=== PATIENT | female | born 1990 | race Caucasian/White ===

== ENCOUNTER 2018-04-22 05:48 | Inpatient (IN) ==
[2018-04-22] MEDS ORDERED: *HR* Nalbuphine 10 MG/ML AMPUL IVP PRN (05:58)
[2018-04-22] MEDS ORDERED: Lidocaine 1% 20 ML MDV INFILT PRN (05:58)
[2018-04-22] MEDS ORDERED: Famotidine 20 MG/2 ML VIAL IVP PRN (05:58)
[2018-04-22] MEDS ORDERED: Ondansetron 4 MG/2 ML VIAL IVP PRN (05:58)
[2018-04-22] MEDS ORDERED: Naloxone 0.4 MG/ML INJ IVP PRN (05:58)
[2018-04-22] MEDS ORDERED: Metoclopramide 10 MG/2 ML VIAL IVP PRN (05:58)
[2018-04-22] MEDS ORDERED: miSOPROStol 100 MCG TABLET PO PRN (05:58)
[2018-04-22] MEDS ORDERED: D5% in 0.45% NACL 1,000 ML IVC SCH (06:15)
[2018-04-22 06:36] LABS: Basophils % 0.3 %; Eosinophils # 0.1 K/mcL (0.0-0.6); Eosinophils % 1.2 %; Hematocrit 35.3 % (35.3-44.9); Immature Granulocytes % 0.7 % (0-4); Lymphocytes # 1.7 K/mcL (0.6-4.6); Lymphocytes % 18.2 %; Mean Corpuscular Hemoglobin 31.2 pg (28.0-33.3); Mean Corpuscular Volume 91.7 fL (83.0-100.0); Mean Platelet Volume 10.8 fL (9.4-12.4); Monocytes # 0.7 K/mcL (0.0-1.3); Monocytes % 7.3 %; Neutrophils # 6.8 K/mcL (1.6-8.9); Platelet Count 203 K/mcL (140-400); Red Blood Count 3.85 M/mcL (3.82-4.97); Red Cell Distribution Width 14.4 % (11.5-14.5); Segmented Neutrophils % 72.3 %
[2018-04-22 06:55] LABS: Amphetamine Screen,Urine Negative ng/mL (Cutoff=1000); Barbiturate Screen,Urine Negative ng/mL (Cutoff=200); Benzodiazepines Screen,Urine Negative ng/mL (Cutoff=200); Cannabinoid Screen,Urine Negative ng/mL (Cutoff = 50); Cocaine Screen,Urine Negative ng/mL (Cutoff= 300); Opiate Screen,Urine Negative ng/mL (Cutoff=300); Phencyclidine Screen,Urine Negative ng/mL (Cutoff=25)
[2018-04-22] MEDS ORDERED: Ringers Solution, Lactated 1,000 ML ONE ×3 (07:19→13:44)
[2018-04-22] MEDS ORDERED: EPHEDrine 50 MG/ML VIAL IVP PRN (07:37)
--- NOTE | 2018-04-22 07:37 | Anesthesia Evaluation PreOp ---
Date of Encounter: 04/22/18 Time of Encounter: 07:33 - Past History Planned Operation: vaginal del, induction 39wk Cardiac History: Denies any Significant Hx Pulmonary History: Denies Any Significant HX PAPER PRODUCTION ENGINEER History: Denies Any Significant HX Other Medical History: Denies Any Significant HX Anesthesia History: No Prior Anesthetic Complications, Past Anesthesia Alcohol Use: none Drug use: none Medications and Allergies 3 Allergy/AdvReac Type Severity Reaction Status Date / Time latex Allergy Hives Verified 04/22/18 07:16 Anesthesia Results - Labs 04/22/18 06:00 Anesthesia Exam - HEENT Pupil (Motor): Pupils equal Mallampati: II Teeth: Normal Oral Opening: Greater than 3 - PAPER PRODUCTION ENGINEER LOC: Oriented PAPER PRODUCTION ENGINEER Motor: Normal RUE, Normal LUE, Normal RLE, Normal LLE, Normal Face PAPER PRODUCTION ENGINEER Sensory: Normal: RUE, LUE, RLE, LLE, Face - Cardiac Rhythm: Regular Murmur: None - Pulmonary Breath Sounds: bilateral Clear Respiratory Effort: Symmetrical Anesthesia Assess/Plan ASA Score: 2 Modified [place] Scale for Level of Consciousness: Cooperative, oriented, and tranquil Anesthetic Plan: General, Regional Monitoring Plan: Standard Monitors
[2018-04-22] MEDS ORDERED: Lidocaine -MPF 2% 5 ML VIAL ONE (07:40)
[2018-04-22] MEDS ORDERED: Epidural Premix (fent/bupiv) 110 ML EP SCH (07:45)
[2018-04-22] MEDS ORDERED: Epidural Premix (fent/bupiv) 110 ML EP ONE (07:55)
--- NOTE | 2018-04-22 08:04 | OB/GYN History & Physical ---
Date of Encounter: 04/22/18 Time of Encounter: 08:01 Assessment and Plan (1) 39 weeks gestation of Current visit: Yes Status: Acute (2) macrosomia during in third trimester Current visit: Yes Status: Acute Induction of labor at 39 weeks. Patient has a proven pelvis with a 9 pound delivery without a shoulder dystocia Qualifiers: Fetus number: single or unspecified fetus Qualified Code(s): O36.63X0 - Maternal care for excessive growth, third trimester, not applicable or unspecified (3) History of maternal Chlamydia infection, currently in third trimester Current visit: Yes Status: Chronic Patient will receive a cord stat at delivery for this history. She declined GC and chlamydia cultures with her care History of Present Illness Chief complaint: IOL HPI: Ms. Thrasher is a 28 year old female with an EDC of 04/29/18 by LMP and confirmed by 8 week ultrasound who is now 39 weeks. She had an ultrasound one week ago which gave an estimated weight of 8 lbs. 12 oz. and an FREYA of 22. Her maximum vertical pocket was 7.8 cm. This has been complicated by macrosomia, she had a first trimester 5 cm ovarian cyst which spontaneously resolved. She had first trimester NT testing which was within range. Her glucose screening has been normal. She denies any vaginal bleeding or loss of fluid and reports an active fetus. She has a benign pituitary tumor and has hyperprolactinemia. No recent prolactin level has been noted in [facility]. She declined GC and chlamydia cultures but will be a cord stat due to history of chlamydia. She has had 2 vaginal deliveries with the largest being 9 pounds and reports no complications with that delivery. Her blood type is a positive, she is GBS negative, rubella immune, varicella immune, syphilis screen negative, hepatitis B surface antigen nonreactive and HIV nonreactive. She states that she has a latex allergy but there is no documentation of testing for this in [facility] Past Med Surg Social Fam HX - Past Medical History Attestation: Yes The following information was validated with the patient. Source: patient, old records reviewed Medical history: other (Hyperprolactinemia benign pituitary tumor) Additional medical history: PITUTARY GLAND TUMOR- HYPERPROLACTINEMIA Psychiatric history: depression - Past Surgical History Surgical History: other (Tonsillectomy) - Social History Smoking Status: Never smoker Smokeless Tobacco Status: No Alcohol use: none Drug use: none - Family History Mother Living Status: Still Living Hx Family Cardiac Disorders: No Hx Family Respiratory Disorders: No Hx Family Cancer: No Hx Family GI Disorders: No Hx Family Genitourinary Disorders: No Hx Family Endocrine Disorder: No Hx Family Musculoskeletal Disorders: No Hx Family Neuromuscular Disorders: No Hx Family Neurologic Disorders: No Hx Family HEENT Disorders: No Hx Family Autoimmune Disorders: No Hx Family Reproductive Disorders: No Hx Family Psychosocial Disorders: No Hx Family Medical Disorders: No Obstetrical History - Pregnancies : 4 Term: 2 Ab's: 1 Livin Medications and Allergies 3 Allergy/AdvReac Type Severity Reaction Status Date / Time latex Allergy Hives Verified 04/22/18 07:16 Review of System OB All systems PM: reviewed and no additional remarkable complaints except as stated - Constitutional Constitutional ROS IM: as per HPI, fatigue, weight gain - Menstruation Menstruation: as per HPI Exam - Vital Signs Vital signs: Initial Vital Signs Pulse Resp BP 90 16 116/66 04/22/18 06:08 04/22/18 06:08 04/22/18 06:08 - Constitutional Constitutional: well developed, well nourished, no acute distress, average body habitus - HEENT HEENT: Normocephaly, Mucus Membranes Moist - Neck Neck exam: normal inspection, supple - Lungs Respiratory exam: CTAB - Cardiovascular Cardiovascular exam: RRR - Breasts Breast: bilateral: normal (gravid) - Abdomen Abdomen: Present: bowel sounds normal, gravid, non tender - Extremities Extremities exam: pedal edema, warm Deep Tendon Reflex Grade: 2+ Normal - Vulva Vulva: bilateral: normal - Vagina Vagina: Present: normal moisture - Cervix Dilation: 3 Effacement: 70 Station: -1 - Anus/Rectum Anus/Rectum: Present: normal perianal skin Results Result Diagrams: 04/22/18 06:00 All other labs normal. - VTE Reasons for not Prescribing Prophylaxis: Treatment not Indicated - Low risk for VTE
--- NOTE | 2018-04-22 08:34 | Anesthesia Procedures ---
Date of Encounter: 04/22/18 Time of Encounter: 08:09 Procedures: Anesthesia - Epidural/Spinal Patient ID/Chart reviewed: Yes Patient examined: Yes OB Eval: Gestational age: 39 OB Eval: : 4 OB Eval: Hx Para: 2 OB Eval: Contractions: Non-stressed pattern Consent Obtained: Yes Supplemental Oxygen: None/Room Air Site Prep: Aseptic Technique, Sterile prep and drape, 0.5% Chlorhexidine/Alcohol Patient position: upright Local Anesthetic: other (2%) Amount of Local Anesthetic used: 2 Touhy Needle Gauge: 18 Touhy Needle Depth (cm): 7 Catheter Depth at Skin (cm): 11 Test Dose (1.5% Lido + Epi): Volume given (mls): 3 Test Dose Result: Negative Loading Dose: Other: 10ml from solution Loading Dose Administered: Thru Catheter Infusion Med: 0.125% Bupivacaine w/ 2 mcg/ml Fentanyl Infusion Rate (mls/hr): [address]: Tegaderm, Tape Interspace Used: L3-L4 Loss of Resistance (MILDRED): Yes (saline) Blood: No CSF: No Paresthesia: No Procedure: vss though out, FHR stable per RN's
--- NOTE | 2018-04-22 12:22 | OB Labor Progress Note ---
Date of Encounter: 04/22/18 Time of Encounter: 12:19 Labor Progress Note - Subjective Subjective: The patient reports being comfortable with her epidural - Vital Signs Vital Signs: Afebrile, vital signs stable - Cervix Cervix: 5/80/-1, vertex with tight bulging bag of water - Heart Tones Heart Tones: 150s baseline, CAT 1 - [place]: Contractions every 2-3 minutes, Cytotec 50 mcg's x1 dose @0650 - Interventions Interventions: 39 week IUP for induction of labor with a history of a macrosomic and suspected macrosomia with this . - Plan Plan: Amniotomy with IUPC placed without difficulty, moderate amount of fluid seen that was clear. Continue induction, determine if augmentation with Pitocin needed. Anticipate vaginal delivery
--- NOTE | 2018-04-22 12:38 | Anesthesia Procedures ---
Date of Encounter: 04/22/18 Time of Encounter: 12:04 Procedures: Anesthesia - Nerve Block Procedure Date: 04/22/18 Time: 12:04 Surgical Procedure: right shoulder arthroscopy Checklist: Correct Patient Identifier, Correct procedure, History checked Correct side: Right Blood Thinner: No Monitor Applied: BP, Pulse Oximetry Supplemental Oxygen via Nasal Cannula (L/min): 2 Sedation: Versed (mg): 2 Sedation: Fentanyl (mcg): 100 Indication: Post Op Analgesia Block Type: Supraclavicular Catheter placed: No Sterile Technique: Yes Ultrasound used: Yes Anatomy identified: Yes Visual spread of Local: Yes Neuro Stimulation: No Blood on Needle Aspiration: No Smooth Injection of Local: Yes Pain with Injection of Local: No Prep: Chlorhexadine Needle: 22 x 50 mm Stimuplex Local: 0.25% Bupivicaine w/Clonidine 20 mcg/cc (10ml for SCP, 10ml for T2)
[2018-04-22] MEDS ORDERED: Oxytocin 20 units/ LR 1000 mL 20 UNIT/1,000 ML BAG IVC SCH ×2 (13:45→20:34)
[2018-04-22] MEDS ORDERED: *HR* ROPIVACAINE 1% PF 100 MG/10 ML VIAL ONE (16:34)
[2018-04-22] MEDS ORDERED: Acetaminophen 325 MG TABLET PO ONE (17:06)
[2018-04-22] MEDS ORDERED: Oxytocin 20 units/ LR 1000 mL 40 UNIT/2,000 ML BAG IVC ONE (18:25)
--- NOTE | 2018-04-22 18:57 | OB/GYN Procedure Note ---
Delivery - Delivery Date: 04/22/18 Provider: Alina Lopez Intrapartum events: none Delivery induction: misoprostol Delivery augmentation: rupture of membranes, pitocin Delivery monitor: external FHT, external uterine, internal uterine Anesthesia: epidural Quantitated Blood Loss: 200 - (s) Infant A Infant Delivery Date: 04/22/18 Delivery Time: 18:30 Presentation: vertex Position: JOSE Route of delivery: Gender: Male Viability: Viable Pounds: 9 Ounces: 4 Weight Gram: 4.18 kg at 1 minute: 8 at 5 mins: 9 Shoulder Dystocia: not encountered Placenta: spontaneous, uterine exploration Cord: 3 umbilical vessels - Repair Episiotomy: none Laceration Description: Perineal - 1st Degree - Complications Delivery complications: none Delivery comments: The patient was complete and pushing with epidural anesthesia with a spontaneous vaginal delivery in the JOSE position of a vigorous male infant weighing 9 lbs. 3 oz. with Apgars of 8 at 1 minute and 9 at 5 minutes. Infant was placed on the maternal abdomen. The cord was clamped and cut after pulsations ceased. Cord blood obtained. The placenta was delivered spontaneous and intact. First-degree perineal laceration was repaired with 3-0 Vicryl in usual fashion. Estimated blood loss 200 mL, complications none. Both mother name for recovering in the LDR in stable condition - Disposition Mom disposition: stable in LDR [place] disposition: stable in LDR
[2018-04-22] MEDS ORDERED: *HR* HYDROcodone/Acet 5/325 mg TABLET PO PRN (20:34)
[2018-04-22] MEDS ORDERED: Sennosides 8.6 MG TABLET PO PRN (20:34)
[2018-04-22] MEDS ORDERED: Acetaminophen 325 MG TABLET PO PRN (20:34)
[2018-04-22] MEDS: Ibuprofen 600 MG TABLET PO SCH (21:32)
[2018-04-23] MEDS: Ibuprofen 600 MG TABLET PO SCH ×3 (04:26→15:07)
[2018-04-23 04:55] LABS: Basophils % 0.2 %; Eosinophils # 0.1 K/mcL (0.0-0.6); Eosinophils % 0.6 %; Hematocrit 34.7 % (35.3-44.9); Hemoglobin 11.8 g/dL (11.5-15.4); Immature Granulocytes % 0.7 % (0-4); Lymphocytes # 1.4 K/mcL (0.6-4.6); Lymphocytes % 11.1 %; Mean Corpuscular Hemoglobin 31.6 pg (28.0-33.3); Mean Platelet Volume 10.7 fL (9.4-12.4); Monocytes # 0.9 K/mcL (0.0-1.3); Monocytes % 7.6 %; Neutrophils # 9.9 K/mcL (1.6-8.9); Platelet Count 215 K/mcL (140-400); Red Blood Count 3.73 M/mcL (3.82-4.97); Red Cell Distribution Width 14.2 % (11.5-14.5); Segmented Neutrophils % 79.8 %
[2018-04-23] MEDS ORDERED: Prenatal Vit/FA 1 EACH TABLET PO SCH (09:00)
[2018-04-23 16:24] VITALS: BP 114/73
--- NOTE | 2018-04-23 17:31 | Discharge Summary ---
Date of Encounter: 04/23/18 Time of Encounter: 17:29 - Discharge Diagnosis (1) Vaginal delivery Priority: Primary Status: Acute Comments: Meeting all PP milestones, Pain well managed on po pain medication, bleeding minimal, desires discharge - Discharge Medications Prescriptions: Docusate [Colace] 100 mg PO BID #60 capsule Ibuprofen [Motrin] 600 mg PO Q6H #60 tablet Home Medications: Acetaminophen [Tylenol] 650 mg PO Q6HR PRN tablet 04/23/18 [Rx] Docusate [Colace] 100 mg PO BID #60 capsule 04/23/18 [Rx] Ibuprofen [Motrin] 600 mg PO Q6H #60 tablet 04/23/18 [Rx] Allergies/Adverse Reactions: 3 Allergy/AdvReac Type Severity Reaction Status Date / Time latex Allergy Hives Verified 04/22/18 07:16 Data Procedures and tests throughout hospitalization: Laboratory Tests 04/22/18 04/22/18 04/23/18 06:00 06:20 04:25 WBC 9.4 12.4 H RBC 3.85 3.73 L Hgb 12.0 11.8 Hct 35.3 34.7 L MCV 91.7 93.0 MCH 31.2 31.6 MCHC 34.0 34.0 RDW 14.4 14.2 Plt Count 203 215 MPV 10.8 10.7 Immature Gran % 0.7 0.7 Seg Neutrophils % 72.3 79.8 Lymphocytes % 18.2 11.1 Monocytes % 7.3 7.6 Eosinophils % 1.2 0.6 Basophils % 0.3 0.2 Neutrophils # 6.8 9.9 H Lymphocytes # 1.7 1.4 Monocytes # 0.7 0.9 Eosinophils # 0.1 0.1 Basophils # 0.0 0.0 Urine Opiates Screen Negative Ur Barbiturates Screen Negative Ur Phencyclidine Scrn Negative Ur Amphetamines Screen Negative U Benzodiazepines Scrn Negative Urine Cocaine Screen Negative U Marijuana (THC) Screen Negative Labs on day of discharge: Labs from last 24 hours 04/23/18 04:25 WBC 12.4 H RBC 3.73 L Hgb 11.8 Hct 34.7 L MCV 93.0 MCH 31.6 MCHC 34.0 RDW 14.2 Plt Count 215 MPV 10.7 Immature Gran % 0.7 Seg Neutrophils % 79.8 Lymphocytes % 11.1 Monocytes % 7.6 Eosinophils % 0.6 Basophils % 0.2 Neutrophils # 9.9 H Lymphocytes # 1.4 Monocytes # 0.9 Eosinophils # 0.1 Basophils # 0.0 Date of admission: 04/22/18 05:48 Primary care physician: Curtis Alcaraz MD Consults: 04/22/18 20:34 Consult to Supervisor Extruding Department [CONS] Routine Comment: Vaginal delivery, consult needed Discharging clinician: Cordelia Lee Anticipated date of discharge: 04/23/18 - Patient Status Disposition: Home, Self-Care Condition: Good Functional capacity at discharge: independent ambulation Overall status at discharge: patient is back to baseline - Discharge Instructions Follow Up With: Curtis Alcaraz MD [Primary Care Provider] - - Diet and Activity Activity: resume usual activities as tolerated Diet: regular diet Hospital Course Reason for admission: induction of labor, IUP at term Delivery: Episiotomy: none Laceration: 1st degree Other procedures: none complications: none Discharge diagnosis: IUP at term delivered [place] baby: male Hospital course: Delivery - Delivery Date: 04/22/18 Provider: Alina Lopez Intrapartum events: none Delivery induction: misoprostol Delivery augmentation: rupture of membranes, pitocin Delivery monitor: external FHT, external uterine, internal uterine Anesthesia: epidural Quantitated Blood Loss: 200 - (s) A Infant Delivery Date: 04/22/18 Infant Delivery Time: 18:30 Presentation: vertex Position: JOSE Route of delivery: Gender: Male Viability: Viable Pounds: 9 Ounces: 4 Weight Gram: 4.18 kg at 1 minute: 8 at 5 mins: 9 Shoulder Dystocia: not encountered Placenta: spontaneous, uterine exploration Cord: 3 umbilical vessels - Repair Episiotomy: none Laceration Description: Perineal - 1st Degree - Complications Delivery complications: none Delivery comments: The patient was complete and pushing with epidural anesthesia with a spontaneous vaginal delivery in the JOSE position of a vigorous male infant weighing 9 lbs. 3 oz. with Apgars of 8 at 1 minute and 9 at 5 minutes. was placed on the maternal abdomen. The cord was clamped and cut after pulsations ceased. Cord blood obtained. The placenta was delivered spontaneous and intact. First-degree perineal laceration was repaired with 3-0 Vicryl in usual fashion. Estimated blood loss 200 mL, complications none. Both mother name for recovering in the LDR in stable condition - Disposition Mom disposition: stable inPP and appropriate for discharge Time Attestation: Total time spent providing and/or coordinating discharge services: Time Spent: Less than 30 minutes Exam - Constitutional Vitals: Temp Pulse Resp BP Pulse Ox 98.2 F 69 12 114/73 99 04/23/18 16:00 04/23/18 16:00 04/23/18 16:00 04/23/18 16:00 04/23/18 16:00 General appearance IM: A&O X 3 - Respiratory Respiratory exam: Present: CTAB - Cardiovascular Cardiovascular exam IM: Present: RRR - GI/Abdominal GI/Abdominal exam IM: soft - Uterine Tone: Firm Uterus Position: At Umbilicus - Extremities Exam Extremities exam IM: Present: normal capillary refill, normal inspection - Neurological Exam Neurological exam: normal gait, oriented X3 - Psychiatric Additional comments: Reports good mood
== END 2018-04-23 18:35 | disposition home or self-care (01) | DRG 560 ==
LOC: 1NENULAB 05:48 → 1NENUOBS 21:53
PROVIDERS: ADMIT Obstetrics & Gynecology; ATTEND Obstetrics & Gynecology

== ENCOUNTER 2020-08-23 07:46 | Inpatient (IN) ==
[2020-08-23] MEDS ORDERED: Azithromycin 500 MG in 0.9 % Sodium Chloride 250 ML IVPB PRN (08:36)
[2020-08-23] MEDS ORDERED: Famotidine 20 MG/2 ML VIAL IVP PRN (08:36)
[2020-08-23] MEDS ORDERED: Naloxone 0.4 MG/ML INJ IVP PRN (08:36)
[2020-08-23] MEDS ORDERED: Ondansetron 4 MG/2 ML VIAL IVP PRN (08:36)
[2020-08-23] MEDS ORDERED: Metoclopramide 10 MG/2 ML VIAL IVP PRN (08:36)
[2020-08-23] MEDS ORDERED: Lidocaine 1% 20 ML MDV INFILT PRN (08:36)
[2020-08-23] MEDS ORDERED: *HR* FentaNYL (PF) 100 MCG/2 ML VIAL IVP PRN (08:36)
[2020-08-23] MEDS ORDERED: Penicillin G Potassium 5,000,000 UNIT in 0.9 % Sodium Chloride Mini Bag 100 ML IVPB ONE (08:54)
[2020-08-23] MEDS ORDERED: miSOPROStoL 25 MCG TABLET PO PRN (09:05)
[2020-08-23] MEDS: Ringers Solution, Lactated 1,000 ML IVC SCH ×2 (09:21→12:20)
[2020-08-23 09:32] LABS: Eosinophils % 1.1 %; Hematocrit 38.5 % (35.3-44.9); Hemoglobin 12.6 g/dL (11.5-15.4); Immature Granulocytes % 1.4 % (0-4); Lymphocytes % 15.5 %; Mean Corpuscular HGB Conc 32.7 g/dL (31.6-35.5); Mean Corpuscular Hemoglobin 30.9 pg (28.0-33.3); Mean Corpuscular Volume 94.4 fL (83.0-100.0); Mean Platelet Volume 10.2 fL (9.4-12.4); Monocytes % 6.5 %; Platelet Count 200 K/mcL (140-400); Red Blood Count 4.08 M/mcL (3.82-4.97); Red Cell Distribution Width 15.7 % (11.5-14.5); Segmented Neutrophils % 75.1 %
[2020-08-23 09:33] LABS: Basophils % 0.4 %; Eosinophils # 0.1 K/mcL (0.0-0.6); Lymphocytes # 1.4 K/mcL (0.6-4.6); Monocytes # 0.6 K/mcL (0.0-1.3); Neutrophils # 6.8 K/mcL (1.6-8.9)
[2020-08-23 09:50] LABS: Amphetamine Screen,Urine Negative ng/mL (Cutoff=1000); Barbiturate Screen,Urine Negative ng/mL (Cutoff=200); Benzodiazepines Screen,Urine Negative ng/mL (Cutoff=200); Cannabinoid Screen,Urine Negative ng/mL (Cutoff = 50); Cocaine Screen,Urine Negative ng/mL (Cutoff= 300); Opiate Screen,Urine Negative ng/mL (Cutoff=300); Phencyclidine Screen,Urine Negative ng/mL (Cutoff=25)
[2020-08-23] MEDS: Penicillin G Potassium 2,500,000 UNIT/105 ML MLS IVPB SCH ×3 (13:26→20:59)
[2020-08-23] MEDS ORDERED: Oxytocin 20 units/ LR 1000 mL 20 UNIT/1,000 ML BAG IVC SCH (15:45)
[2020-08-24] MEDS ORDERED: Benzocaine/Menthol 56 GM AEROSOL SPRAY TP PRN (02:14)
[2020-08-24] MEDS ORDERED: Oxytocin 20 units/ LR 1000 mL 20 UNIT/1,000 ML BAG IVC SCH (02:14)
[2020-08-24] MEDS ORDERED: Lanolin 7 G OINT...G. TP PRN (02:14)
[2020-08-24] MEDS: Ibuprofen 600 MG TABLET PO SCH ×3 (02:45→15:10)
[2020-08-24 06:55] LABS: Basophils % 0.3 %; Eosinophils % 0.2 %; Hematocrit 32.2 % (35.3-44.9); Immature Granulocytes % 0.7 % (0-4); Lymphocytes # 1.3 K/mcL (0.6-4.6); Lymphocytes % 10.9 %; Mean Corpuscular HGB Conc 32.9 g/dL (31.6-35.5); Mean Corpuscular Hemoglobin 31.1 pg (28.0-33.3); Mean Corpuscular Volume 94.4 fL (83.0-100.0); Mean Platelet Volume 10.1 fL (9.4-12.4); Monocytes # 0.9 K/mcL (0.0-1.3); Monocytes % 7.3 %; Neutrophils # 9.9 K/mcL (1.6-8.9); Platelet Count 174 K/mcL (140-400); Red Blood Count 3.41 M/mcL (3.82-4.97); Red Cell Distribution Width 15.4 % (11.5-14.5); Segmented Neutrophils % 80.6 %; White Blood Count 12.3 K/mcL (4.3-11.1)
[2020-08-24 06:57] LABS: Hemoglobin 10.6 g/dL (11.5-15.4)
[2020-08-24] MEDS ORDERED: Prenatal Vit/FA 1 EACH TABLET PO SCH (09:00)
[2020-08-24] MEDS: Acetaminophen 325 MG TABLET PO SCH ×2 (09:01→20:37)
[2020-08-24] MEDS ORDERED: FLU Vac QV 20-21 (6Month+)/PF 0.5 ML SYRINGE IM ONE (14:37)
[2020-08-24 21:31] VITALS: BP 107/68
== END 2020-08-24 23:57 | disposition home or self-care (01) | DRG 807 ==
LOC: 1NENULAB 07:46 → 1NENUOBS 08-24 02:36
PROVIDERS: ADMIT Obstetrics & Gynecology; ATTEND Obstetrics & Gynecology